=== PATIENT | female | born 1970 | race Caucasian/White ===

== ENCOUNTER 2020-01-08 01:12 | Outpatient (CLI) | payer OTHER, SELFPAY ==
[2020-01-08 19:18] LABS: SARS-CoV-2 RNA PCR Negative
== END 2020-01-08 01:13 | disposition home or self-care (01) ==
LOC: ANHCOVIDDT 01:13
PROVIDERS: Visit Provider Obstetrics & Gynecology Gynecology
DX: Z01.812 Encounter for preprocedural laboratory examination (principal); Z20.828 Contact with and (suspected) exposure to other viral communicable diseases
CPT/HCPCS: 87635; C9803; U0003

== ENCOUNTER 2020-01-11 01:55 | Day surgery (SDC) | payer OTHER, SELFPAY ==
[2019-12-31 10:38] VITALS: BMI 26.4
[2020-01-11 06:15] VITALS: BP 128/52; PULSE 64; RESP 16; TEMP 36.6; O2SAT 100
[2020-01-11] MEDS: LACTATED RINGERS 1,000 ML 30 ML IV CONT (06:36)
[2020-01-11] MEDS: ACETAMINOPHEN 500 MG TABLET 1000 MG PO (06:45)
--- NOTE | 2020-01-11 06:46 | WPDANESEPPF ---
Anes - Initial Pre Proc Eval Procedure: Operation Date: 01/11/20 11:30 Proposed Procedures p Hysteroscopy, Dilation and Curettage with Myosure - Tanvi Valdez MD Date/Time: 01/11/20 06:46 Surgeon: Tanvi Valdez MD Pre Op Diagnosis: uterine polyp Patient Data Age: 49 Gender: F Height: 1.63 m Weight: 70 kg Allergies Allergy/AdvReac Type Severity Reaction Status Date / Time clarithromycin Allergy Intermediate Swelling Verified 12/31/19 10:17 erythromycin base Allergy Intermediate Swelling Verified 12/31/19 10:17 meperidine Allergy Unknown LARGE AMT Verified 12/31/19 10:17 ITCHING Home Medications Medication Instructions Recorded Confirmed Type albuterol sulfate 2 puff INHALATION Q4-6H PRN 12/31/19 12/31/19 History alprazolam 0.5 mg PO TID PRN 12/31/19 12/31/19 History diclofenac sodium 1 % TOPICAL DAILY 12/31/19 12/31/19 History ergocalciferol (vitamin D2) 50,000 unit PO WEEKLY 12/31/19 12/31/19 History [Vitamin D2] fluticasone propionate [Flovent 2 puff INHALATION BID 12/31/19 12/31/19 History HFA] metaxalone 800 mg PO DAILY 12/31/19 12/31/19 History pimecrolimus 1 % TOPICAL DAILY 12/31/19 12/31/19 History tizanidine 4 mg PO DAILY PRN 12/31/19 12/31/19 History Patient hx anesthesia problems: post op nausea/vomiting Family hx anesthesia problems: none PMFSH Past Medical History Medical History (Updated 01/11/20 @ 06:47 by King Yoo DO) Anxiety Asthma Migraine PONV (postoperative nausea and vomiting) Social History Social History Smoking status: Never smoker Second hand tobacco smoke exposure: No Alcohol intake: never Substance use: never Living arrangements: with family Spiritual care concerns: No Anes - Eval Final PreProcedure Day of Procedure 01/11/20 06:46 Informed Consent: The patient's anesthetic plan and its attendant risks and benefits were discussed with the patient/family/POA. Questions were solicited and answers provided to the satisfaction of the patient/family/POA.
[2020-01-11] MEDS: METOCLOPRAMIDE HCL INJ 10 MG/2 ML VIAL IV PUSH (07:07)
[2020-01-11] MEDS: ONDANSETRON INJ 4 MG/2 ML VIAL IV PUSH (07:07)
[2020-01-11] MEDS: SCOPOLAMINE 1.5 MG PATCH TRANSDERM (07:08)
[2020-01-11] MEDS: FAMOTIDINE 20 MG/2 ML VIAL IV PUSH (07:08)
--- NOTE | 2020-01-11 07:16 | P.HP_ITS ---
History of Present Illness History of Present Illness Consent: Risks, benefits, and alternatives have been discussed and questions answered. Patient agrees to proceed with procedure. Chief complaint: uterine polyp Narrative: Leona De La Rosa is a 49 year old female with polyp vs fibroid noted on hysteroscopy in office. Unable to remove in office with polyp forceps or myoma graspers. Plan to remove in OR with myosure resection. Risks of infection, bleeding, perforation, and fluid imbalance discussed. Initial hysteroscopy done for change in cycles to q 20 daysPatient agrees to proceed. 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 Migraine PONV (postoperative nausea and vomiting) Status post hysteroscopy Surgical History Surgical History (Updated 01/11/20 @ 07:19 by Tanvi Valdez MD) S/P bilateral breast reduction S/P laparoscopic cholecystectomy Social History Social History Smoking status: Never smoker Second hand tobacco smoke exposure: No Alcohol intake: never Substance use: never Living arrangements: with family Spiritual care concerns: No Meds Home Medications and Allergies Home Medications Medication Instructions Recorded Confirmed Type albuterol sulfate 2 puff INHALATION Q4-6H PRN 12/31/19 12/31/19 History alprazolam 0.5 mg PO TID PRN 12/31/19 12/31/19 History diclofenac sodium 1 % TOPICAL DAILY 12/31/19 12/31/19 History ergocalciferol (vitamin D2) 50,000 unit PO WEEKLY 12/31/19 12/31/19 History [Vitamin D2] fluticasone propionate [Flovent 2 puff INHALATION BID 12/31/19 12/31/19 History HFA] metaxalone 800 mg PO DAILY 12/31/19 12/31/19 History pimecrolimus 1 % TOPICAL DAILY 12/31/19 12/31/19 History tizanidine 4 mg PO DAILY PRN 12/31/19 12/31/19 History Allergies Allergy/AdvReac Type Severity Reaction Status Date / Time clarithromycin Allergy Intermediate Swelling Verified 01/11/20 07:17 erythromycin base Allergy Intermediate Swelling Verified 01/11/20 07:17 meperidine Allergy Unknown LARGE AMT Verified 01/11/20 07:17 ITCHING Exam Const: General: no acute distress GI: GI Palp: Yes Soft to palpation : External Female Exam: normal external appearance Speculum Exam - Vagina: normal appearance of the vagina Speculum Exam - Cervix: normal appearance of the cervix Bimanual exam- vagina & uterus: uterine size normal (about 11 cm) and other (hysteroscopy with large polyp vs fibroid) Bimanual Exam- Adnexa, other: normal adnexae Assessment and Plan Assessment and plan (1) Abnormal uterine bleeding: Code(s): N93.9 - Abnormal uterine and vaginal bleeding, unspecified Status: Acute Assessment and Plan: plan to proceed with hysteroscopy and removal of polyp/fibroid with myosure device
--- NOTE | 2020-01-11 07:50 | SUR.OPER ---
EBL:10cc
[2020-01-11 07:54] VITALS: BP 107/55; PULSE 62; RESP 14; O2SAT 97
--- NOTE | 2020-01-11 08:09 | P.OP_ITS ---
Procedure Note - Detailed Date of procedure: 01/11/20 Pre-op diagnosis: uterine polyp abnormal uterine bleeding Post-op diagnosis: same Procedure performed: hysteroscopy Description of procedure: The patient is taken to the operating room and placed in the dorsal lithotomy position. [place] speculum was placed in the vagina and the cervix is grasped with a tenaculum. The cervix is injected with 1% lidocaine in each quadrant. The uterus is sounded to 9.5cm. The cervix is serially dilated with Heg[place]. The diagnostic hysteroscope was placed and no abnormalities are noted. Previously seen mass in the office is no longer present. No specimen is taken as the patient just had an endometrial biopsy that was benign. Instruments are removed and the patient is awakened from anesthesia. She was taken to the recovery room in stable condition. Anesthesia: MAC and local Surgeon: Tanvi Valdez MD Estimated blood loss (mL): 5 Drains: No Packing: No Pathology: none sent Complications: No immediate complications Condition: stable Disposition: PACU Findings: uterus 9.5 cm; grossly normal; previously noted mass is gone
[2020-01-11 08:27] VITALS: BP 122/62; PULSE 59; RESP 14
[2020-01-11 08:35] VITALS: BP 131/65; PULSE 47; RESP 14
== END 2020-01-11 08:50 | disposition home or self-care (01) ==
PROVIDERS: Visit Provider Obstetrics & Gynecology Gynecology
PROC: 0U5B8ZZ Destruction of Endometrium, Via Natural or Artificial Opening Endoscopic (ICD-10-PCS; CPT 58563; principal; 2020-01-11 11:30)
DX: N93.9 Abnormal uterine and vaginal bleeding, unspecified (principal); J45.909 Unspecified asthma, uncomplicated; F41.9 Anxiety disorder, unspecified; Z79.51 Long term (current) use of inhaled steroids; Z79.899 Other long term (current) drug therapy
CPT/HCPCS: 58555; A9270; C9803; J1100; J2250; J2405; J2704; J2765; J3010; J7030; J7120; U0003

== ENCOUNTER → 2020-03-11 15:48 | Outpatient (CLI) | payer OTHER, SELFPAY ==
--- NOTE | ~2020-03-11 | MM_ITS ---
EXAMINATION: MM screening [facility] BI w sandra HISTORY: Screening mammogram TECHNIQUE: Craniocaudal and mediolateral oblique 3-D tomosynthesis images were obtained and synthetic 2-D images were generated. CAD analysis was submitted and interpreted. COMPARISON: 12/02/2018, 11/25/2017, 11/08/2016, 10/23/2016 BREAST PARENCHYMAL COMPOSITION: There are scattered areas of fibroglandular density. FINDINGS: There is no evidence of suspicious mass, calcification, or architectural distortion to sugg est malignancy in either breast. There has been no suspicious interval change. IMPRESSION: 1. No mammographic evidence of malignancy. 2. Recommend routine screening mammography in one year. BI-RADS Category 1: Negative Reviewed, dictated and finalized at location A.
== END ==
PROVIDERS: PCP Internal Medicine; Visit Provider Nurse Practitioner
DX: Z12.31 Encounter for screening mammogram for malignant neoplasm of breast (principal)
CPT/HCPCS: 77063; 77067